=== PATIENT | female | born 1990 | race Caucasian/White ===

== ENCOUNTER → 2021-07-12 | Emergency (ER) | payer OTHER ==
[~2021-07-12] VITALS: Ht 165.1 cm; Wt 59.0 kg
== END | disposition home or self-care (01) ==
LOC: ER 17:05
DX: O26.851 Spotting complicating pregnancy, first trimester (principal); O30.041 Twin pregnancy, dichorionic/diamniotic, first trimester; Z3A.09 9 weeks gestation of pregnancy